=== PATIENT | female | born 1990 | race Caucasian/White ===

== ENCOUNTER 2017-04-14 20:03 | Emergency (ER) | payer SELFPAY ==
[2017-04-14 20:35] VITALS: BP 110/73; PULSE 100; TEMP 100.6; BMI 18.8
[2017-04-14] MEDS ORDERED: IBUPROFEN 400 MG TABLET (FP) PO ONE ×2 (20:51→21:06)
--- NOTE | 2017-04-14 21:19 | PDOC ---
History of Present Illness - General Chief Complaint: Cold Symptoms Stated Complaint: COLD SYMPTOMS Time Seen by Provider: 04/14/17 20:42 History Source: Patient - History of Present Illness Timing/Duration: reports: other Severity: reports: moderate Associated Symptoms: reports: earache, fever/chills, sore throat. denies: chest pain/soreness, cough, dizziness, facial pain, headache, lightheadedness, muscle aches, nasal congestion, nasal drainage, shortness of breath Past History - Past Medical History Allergies/Adverse Reactions: Allergies Allergy/AdvReac Type Severity Reaction Status Date / Time No Known Allergies Allergy Verified 04/14/17 20:29 Other medical history: Pt denies - Psycho/Social/Smoking Cessation Hx Suicidal Ideation: No Smoking History: Never smoked Information on smoking cessation initiated: No Hx Alcohol Use: No Drug/Substance Use Hx: No Substance Use Type: None Review of Systems - Review of Systems Constitutional: Yes: Fever HEENTM: Yes: Ear Pain, Throat Pain. No: Nose Congestion Respiratory: No: Cough, Shortness of Breath *Physical Exam - Vital Signs Last Vital Signs Temp Pulse Resp BP Pulse Ox 100.6 F H 100 H 18 110/73 97 04/14/17 20:30 04/14/17 20:30 04/14/17 20:30 04/14/17 20:30 04/14/17 20:30 - Physical Exam General Appearance: Yes: Appropriately Dressed. No: Apparent Distress HEENT: positive: Normal ENT Inspection, Normal Voice, TMs Normal, Pharynx Normal. negative: Scleral Icterus (R), Scleral Icterus (L), Tonsillar Exudate, Tonsillar Erythema Neck: positive: Supple. negative: Lymphadenopathy (R), Lymphadenopathy (L) Respiratory/Chest: negative: Respiratory Distress Integumentary: positive: Dry, Warm Neurologic: positive: Fully Oriented, Alert, Normal Mood/Affect ED Treatment Course - Medications Given in the ED: ED Medications Discontinued Medications Generic Name Dose Route Start Last Admin Trade Name Freq PRN Reason Stop Dose Admin Ibuprofen 800 mg 04/14/17 20:51 04/14/17 21:08 Motrin - PO 04/14/17 20:52 800 mg ONCE ONE Administration Medical Decision Making - Medical Decision Making 04/14/17 21:17 26-year-old female, no significant history, here with sore throat with bilateral ear pain and subjective fever 3 days. No cough, short of shortness of breath. No sick contacts or recent travel. Patient well-appearing, with low -grade fever with unremarkable exam otherwise. Suspect most likely viral source at this time. DC with supportive treatment *DC/Admit/Observation/Transfer Diagnosis at time of Disposition: URI (upper respiratory infection) Qualifiers: URI type: unspecified viral URI Qualified Code(s): J06.9 - Acute upper respiratory infection, unspecified; B97.89 - Other viral agents as the cause of diseases classified elsewhere - Discharge Dispostion Disposition: HOME Condition at time of disposition: Good - Patient Instructions Printed Discharge Instructions: DI for Viral Upper Respiratory Infection -- Adult Print Language: IRISH
== END 2017-04-14 21:18 | disposition home or self-care (01) ==
LOC: JERFT 20:03
DX: J06.9 Acute upper respiratory infection, unspecified (principal); B97.89 Other viral agents as the cause of diseases classified elsewhere
CPT/HCPCS: 99281-25

== ENCOUNTER 2025-01-07 06:50 | Day surgery (SDC) | payer OTHER ==
[2025-01-01 16:27] VITALS: BMI 22.6
[2025-01-07] MEDS ORDERED: BUPIVACAINE HCL/PF 0.25% (2.5MG/ML) 10 ML VIAL ONE (11:55)
[2025-01-07] MEDS ORDERED: LIDOCAINE HCL 1%, 10 MG/ML (20ML VIAL) ONE (11:55)
[2025-01-07] MEDS ORDERED: BUPIVACAINE HCL/PF 0.5% (5MG/ML) 10 ML VIAL ONE (11:59)
[2025-01-07] MEDS ORDERED: LIDOCAINE HCL/PF 2% SDV 5ML VIAL ONE (12:09)
[2025-01-07] MEDS ORDERED: MIDAZOLAM HCL 2 MG/2 ML SINGLE DOSE VIAL ONE (12:10)
[2025-01-07] MEDS ORDERED: PROPOFOL 40 ML ONE (12:10)
[2025-01-07] MEDS ORDERED: PROPOFOL 20 ML ONE (12:33)
[2025-01-07] MEDS ORDERED: ceFAZolin SODIUM 1 GM VIAL ONE (12:34)
[2025-01-07] MEDS: ceFAZolin SODIUM 1 GM VIAL IVPB ONE (12:37)
[2025-01-07] MEDS: LIDOCAINE HCL 1%, 10 MG/ML (20ML VIAL) INF ONE ×2 (12:46)
[2025-01-07] MEDS: BUPIVACAINE HCL/PF 0.25% (2.5MG/ML) 10 ML VIAL IJ ONE ×2 (12:46)
[2025-01-07] MEDS ORDERED: ONDANSETRON 4 MG/2 ML VIAL IVPUSH PRN (13:36)
[2025-01-07] MEDS: LACTATED RINGERS SOLUTION 1,000 ML IV SCH (13:41)
[2025-01-07 13:48] VITALS: RESP 18
[2025-01-07 15:31] VITALS: BP 109/69; PULSE 61; TEMP 97.1
== END 2025-01-07 15:10 | disposition home or self-care (01) ==
LOC: JASU-SURG 06:50
PROVIDERS: ATTEND Surgery
PROC: 0JB70ZZ Excision of Back Subcutaneous Tissue and Fascia, Open Approach (ICD-10-PCS; principal; 2025-01-07 13:30)
DX: R22.2 Localized swelling, mass and lump, trunk (principal)
CPT/HCPCS: 81025; 88305-TC; 94760